=== PATIENT | female | born 1975 | race Two or more races ===

== ENCOUNTER 2018-06-23 17:40 | Emergency (ER) | payer OTHER ==
[~2018-06-23] VITALS: Ht 157.5 cm; Wt 81.6 kg
[2018-06-23 17:59] VITALS: BP 149/95
[2018-06-23] MEDS ORDERED: TETANUS-DIPTH-ACEL PERTUSSIS 0.5ML SYRG IM ONE (19:45)
[2018-06-23] MEDS ORDERED: HYDROcodone-ACET 10/325MG TAB PO ONE (19:45)
== END 2018-06-23 20:01 | disposition home or self-care (01) ==
LOC: ER 17:46
DX: S01.01XA Laceration without foreign body of scalp, initial encounter (principal); R51 Headache; W26.9XXA Contact with unspecified sharp object(s), initial encounter; Y93.89 Activity, other specified; Y99.8 Other external cause status; Y92.89 Other specified places as the place of occurrence of the external cause
CPT/HCPCS: 12002; 70450; 90471; 90715

== ENCOUNTER 2019-08-25 14:18 | Emergency (ER) | payer MEDICAID, OTHER ==
[~2019-08-25] VITALS: Ht 165.1 cm; Wt 77.1 kg
[2019-08-25] MEDS ORDERED: KETOROLAC TROMETH 60MG/2ML VIAL IM ONE (16:00)
[2019-08-25 16:02] VITALS: BP 103/66
== END 2019-08-25 16:48 | disposition home or self-care (01) ==
LOC: ER 14:30
DX: S16.1XXA Strain of muscle, fascia and tendon at neck level, initial encounter (principal); W19.XXXA Unspecified fall, initial encounter; Y93.89 Activity, other specified; Y92.89 Other specified places as the place of occurrence of the external cause; Y99.8 Other external cause status
CPT/HCPCS: 72040; 96372; 99283; J1885

== ENCOUNTER 2023-07-29 19:27 | Emergency (ER) | payer MEDICAID, OTHER ==
[~2023-07-29] VITALS: Ht 160 cm; Wt 86.7 kg
[2023-07-29 20:15] LABS: Urine Bacteria NONE SEEN /hpf (None Seen); Urine Blood Negative /uL (Negative); Urine Clarity Clear (Clear); Urine Color Yellow (Yellow); Urine Protein, UAD Negative (Negative); Urine Specific Gravity 1.024 (1.001-1.035); Urine WBC 1 /hpf (0 - 5); Urine pH 6.5 (5.0-8.0)
[2023-07-29 20:46] VITALS: BP 151/87; PULSE 84; RESP 16; TEMP 98.4; O2SAT 94
[2023-07-29] MEDS ORDERED: HYDROcodone-ACET 5/325MG TAB PO ONE (21:30)
[2023-07-29] MEDS ORDERED: ONDANSETRON ODT 4 MG TAB PO ONE (21:30)
[2023-07-29 22:23] LABS: COVID19 ANTIGEN SOFIA FIA NEGATIVE (NEGATIVE); Rapid Influenza A Negative (Negative); Rapid Influenza B Negative (Negative)
[2023-07-29] MEDS ORDERED: HYDR-4902 PO (22:34)
[2023-07-29] MEDS ORDERED: ZOFR4T PO (22:34)
== END 2023-07-29 22:55 | disposition home or self-care (01) ==
LOC: ER 19:27
DX: J06.9 Acute upper respiratory infection, unspecified (principal); Z20.822 Contact with and (suspected) exposure to COVID-19
CPT/HCPCS: 36415; 81001; 82962; 87426; 87804; 99283; Q0162